=== PATIENT | female | born 1970 | race Two or more races ===

== ENCOUNTER 2019-04-26 19:37 | Emergency (ER) | payer MEDICAID ==
[~2019-04-26] VITALS: Ht 160 cm; Wt 58.0 kg
[2019-04-26] MEDS ORDERED: ondansetron 4mg rapidly disintigrating tab PO ONE (20:15)
--- NOTE | 2019-04-26 20:17 | NUR ---
PT SITTING COMFORTABLY IN BED WATCHING SHOW ON TABLET
[2019-04-26 20:41] LABS: URINE HCG NEGATIVE (NEG)
[2019-04-26 20:42] LABS: CLARITY,URINE CLEAR (Clear); COLOR,URINE YELLOW (Yellow); GLUCOSE, URINE NEGATIVE (Neg); KETONES,URINE NEGATIVE (Neg); LEUKOCYTE ESTERASE ,URINE NEGATIVE (Neg); NITRITES, URINE NEGATIVE (Neg); OCCULT BLOOD,URINE NEGATIVE (Neg); PH,URINE 6.5 (4.8-8.0); PROTEIN,URINE NEGATIVE (Neg); UROBILINOGEN,URINE 0.2 E.U/dL (0.2-1.0)
[2019-04-26 20:49] LABS: UA COLLECTION TYPE VOIDED
[2019-04-26] MEDS ORDERED: ONDA8TAB6 PO (20:59)
[2019-04-26] MEDS ORDERED: LOPE2CAP PO (20:59)
[2019-04-26 21:08] VITALS: BP 120/77
== END 2019-04-26 21:10 | disposition home or self-care (01) ==
LOC: ER 19:38
DX: R10.31 Right lower quadrant pain (principal); R19.7 Diarrhea, unspecified; R11.0 Nausea; Z98.890 Other specified postprocedural states; Z88.0 Allergy status to penicillin; Z79.899 Other long term (current) drug therapy
CPT/HCPCS: 81003; 81025; 99283